=== PATIENT | female | born 1990 | race Caucasian/White ===

== ENCOUNTER → 2017-11-26 15:44 | Outpatient (CLI) | payer OTHER, SELFPAY ==
--- NOTE | 2017-11-26 15:00 | GANG_PTH ---
PATIENT: ALVIN PASTOR LOC: [facility] U#:[id number] AGE/SX: 34/F ROOM: RE11/26/[address]: Sebastián Rodriges MD : 1990 BED: DIS: SPEC #: [id number] RECD: 11/26/17 15:44 STATUS: JESSICA BRIAN #: [id number] DIANNE: 11/26/17 15:[address]: Sebastián Rodriges DEPT: SURGICAL PATHOLOGY RECD BY: Seng Gurrola ENTERED: 11/27/17 07:42 SP TYPE: GANGLION OTHR DR: Dr. Juan Diego Gonzalez MD [facility] Tissues: GANGLION CYST Procedures: Surgery Specimen Level III HEADER OPERATION: Right wrist removal ganglion cyst PRE-OP DIAGNOSIS: Large ganglion cyst right wrist TISSUE SUBMITTED: Dorsal ganglion cyst right wrist MICROSCOPIC DIAGNOSIS Dorsal ganglion cyst right wrist, biopsy: Consistent with ganglion cyst with reactive changes. SJ:mehnaz 11/28/17 MICROSCOPIC DESCRIPTION Slides are reviewed. GROSS DESCRIPTION Received is one container labeled with the patient's name and not further designated. The specimen consists of an irregular piece of house soft tissue measuring 2.5 x 1.5 x 1 cm. Also present in the container are multiple pieces of soft tissue measuring in aggregate 2 x 0.5 x 0.3 cm. The largest piece is serially sectioned. The entire specimen is submitted in two cassettes. / SJ:mehnaz 11/27/17 TC:5 [facility]: [id number]
== END ==
PROVIDERS: Family Provider Internal Medicine; PCP Internal Medicine; Visit Provider Orthopaedic Surgery
DX: M67.431 Ganglion, right wrist (principal)
CPT/HCPCS: 88304

== ENCOUNTER 2021-03-07 13:00 | Outpatient (RCR) | payer OTHER, SELFPAY | END 2021-03-08 23:59 | LOC: DC 13:00 | PROVIDERS: PCP Internal Medicine; Visit Provider Advanced Practice Midwife | DX: O24.410 Gestational diabetes mellitus in pregnancy, diet controlled (principal); Z3A.00 Weeks of gestation of pregnancy not specified | CPT/HCPCS: 97802; G0108 ==

== ENCOUNTER 2021-03-14 15:42 | Outpatient (RCR) | payer OTHER, SELFPAY | END 2021-04-08 23:59 | LOC: DC 15:42 | PROVIDERS: PCP Internal Medicine; Visit Provider Advanced Practice Midwife | DX: O24.410 Gestational diabetes mellitus in pregnancy, diet controlled (principal); Z3A.00 Weeks of gestation of pregnancy not specified ==

== ENCOUNTER 2021-05-21 05:08 | Inpatient (IN) | payer OTHER, SELFPAY ==
[2021-05-21] VITALS (22 sets, daily range): BP systolic 91–131; BP diastolic 46–90; PULSE 58–105; RESP 10–19; TEMP 36.2–36.9; O2SAT 95–99; BMI 33.5
--- NOTE | 2021-05-21 | FALS_PTH ---
PATIENT: ALVIN PASTOR LOC: WP U#:[id number] AGE/SX: 30/F ROOM: WP007 RE05/21/[address]: Dr. Shannen Zaidi, MDDOB: 1990 BED: 1 DIS: 05/23/2021 SPEC #: [id number] RECD: 05/21/21 12:42 STATUS: JESSICA BRIAN #: [id number] DIANNE: 05/21/21 00:[address]: Shannen Zaidi DEPT: SURGICAL PATHOLOGY RECD BY: Seng Gurrola ENTERED: 05/21/21 12:42 SP TYPE: FALL TUBES OTHR DR: Dr. Juan Diego Gonzalez MD Tissues: Fallopian tube Procedures: Surgery Specimen Level II HEADER OPERATION: Tubal ligation PRE-OP DIAGNOSIS: Sterilization TISSUE SUBMITTED: Fallopian tubes, right side with suture MICROSCOPIC DIAGNOSIS Right fallopian tube, salpingectomy: Complete cross-section of fallopian tube with no pathologic change. Left fallopian tube, salpingectomy: Complete cross-section of fallopian tube with no pathologic change. AM:mehnaz 05/22/2021 MICROSCOPIC DESCRIPTION Slides are reviewed. GROSS DESCRIPTION Received in fixative is one container labeled with the patient's name and designated bilateral fallopian tubes, right with suture. The specimen consists of two fallopian tubes with an average length of 6 cm and has an average diameter of 0.5 cm. Both fallopian tubes have normal fimbriated ends. No mass lesions are identified. Tile Designer sections are submitted in two cassettes as follows: 1 - right fallopian tube, 2 - left other fallopian tube. / AM:mehnaz 05/21/21 TC:4 CPT: 91233 x2
[2021-05-21] MEDS: Lactated Ringers 1,000 ML 999 ML IV (06:00)
[2021-05-21 06:13] LABS: Absolute Lymphocyte Count 3.87 X10^3/uL (0.83-4.51); Absolute Neutrophil Count 6.7 X10^3/uL (2.0-7.7); Basophil# 0.06 X10^3/uL; Basophil% 0.5 % (0-1); Eosinophil# 0.04 X10^3/uL; Eosinophils% 0.3 % (0-5); Hematocrit 32.1 % (37-47); Hemoglobin 10.5 g/dL (12.0-15.0); Lymphocyte # 3.87 X10^3/ul (0.83-4.51); Lymphocyte % 32.6 % (19-41); Mean Corp Hgb Conc 32.7 g/dL (32-36); Mean Corpuscular Hgb 26.4 pg (27.0-32.0); Mean Corpuscular Volume 80.7 fL (81-99); Monocyte# 1.12 X10^3/uL; Monocyte% 9.4 % (0-10); NRBC Flagged by Analyzer 0 % (0-5); Neutrophil # 6.73 X10^3/uL (2.7-7.7); Neutrophil % 56.8 % (47-70); Platelet Count 304 K/mm3 (150-450); RBC Distribution Width CV 13.4 % (11.6-14.6); RBC Distribution Width SD 39.2 fl (35.1-43.9); Red Blood Count 3.98 M/mm3 (4.2-5.4); White Blood Count 11.9 K/mm3 (4.4-11.0)
[2021-05-21] MEDS: Acetaminophen 500 MG Tablet 1000 MG PO ×3 (06:30→18:55)
[2021-05-21 06:36] LABS: Bedside Glucose 82 mg/dL (70-110)
[2021-05-21] MEDS: Lactated Ringers 1,000 ML 150 ML IV (06:55)
[2021-05-21] MEDS: Sodium Citrate/Citric Acid 30 ML UDC PO (06:58)
--- NOTE | 2021-05-21 07:13 | PCM.HP.BLA ---
History and Physical Date of Admission: 05/21/21 Pre-Op History and Physical ? HPI: The patient is a 30 year old female presenting for pre-operative visit. She is scheduled for and salpingectomy, for breech, 39 weeks, GDMA1 on 05/21/21. Procedure discussed along with risks, benefits and complications. Other alternatives discussed for management. Consent form signed? Yes. ? ? PAST MEDICAL HISTORY PAST MEDICAL HISTORY Diagnosis Date ? Gestational diabetes mellitus (GDM) in second trimester 02/25/2021 ? depression ? ? Pre-eclampsia ? ? ? PAST SURGICAL HISTORY PAST SURGICAL HISTORY Procedure Laterality Date ? CYST EXCISION Right 11/25/2017 ? gangling ? ? ? CURRENT MEDICATIONS Current Outpatient Medications Medication Sig Dispense Refill ? blood sugar diagnostic test strip 1 Strip four times daily. Use as instructed 120 Strip 9 ? Lancets lancets 1 Each four times daily. Use as instructed 120 Each 9 ? Urine Glucose-Ketones Test (KETO-DIASTIX) strp 1 Strip four times daily. 120 Strip 9 ? aspirin, enteric coated (ASPIRIN, ENTERIC COATED) 81 mg EC tablet Take 81 mg by mouth once daily. ? ? ? doxylamine succinate (UNISOM, DOXYLAMINE, ORAL) Take by mouth. ? ? ? PNV62/FA/OM3/DHA/EPA/FISH OIL ( GUMMY ORAL) Take by mouth as directed. ? ? ? No current facility-administered medications for this visit. ? ? ALLERGIES: Patient has no known allergies. ? PERSONAL HISTORY: SOCIAL HISTORY Social History ? Tobacco Use ? Smoking status: Never Smoker ? Smokeless tobacco: Never Used Vaping Use ? Vaping Use: Never used Substance Use Topics ? Alcohol use: No ? Drug use: No ? FAMILY HISTORY: FAMILY HISTORY FAMILY HISTORY Problem Relation Age of Onset ? No Known Problems Mother ? ? Ischemic Heart Disease Father ? ? 12/2010 ? No Known Problems Sister ? ? other (Other) Sister ? ? Autoimmune Hepavirus Disease ? Macular Degen Maternal Grandmother ? ? Cancer Maternal Grandfather ? ? melanoma, colon cancer ? Aneurysm Paternal Grandmother ? ? Diabetes Paternal Grandmother ? ? Ischemic Heart Disease Paternal Grandfather ? ? Cancer Paternal Grandfather ? ? Hypertension Paternal Grandfather ? ? No Known Problems Son ? ? ? REVIEW OF SYMPTOMS: negative except as noted above PHYSICAL EXAMINATION: ? VITALS: Blood pressure 130/76, weight 179 lb (81.2 kg), last menstrual period 08/13/2020, currently . ? GENERAL: The patient is well nourished, well hydrated in no acute distress. , The patient is oriented to time, place, and person. NECK: full range of motion Abdomen: gravid, non tender. FHR 140s. ? IMPRESSION: 39 weeks, Breech, GDMA1 , desires sterilization ? PLAN: C/S and Bilateral salpingectomy ? Pt has been counseled on risks/benefits and alternatives of surgery including but not limited to anesthesia, bleeding, infection, injury to pelvic structures including bowel, bladder, ureters and vessels. Pt wishes to proceed with surgery at this time. Pt understands salpingectomy is permanent. Cs pre and post op consent signed. ? ? I have reviewed and updated past medical and surgical history, medications and allergies Shannen Hendricks MD ?4:52 PM Routine Office Visit on 05/14/2021 Routine Office Visit on 05/14/2021 Note shared with patient
--- NOTE | 2021-05-21 08:02 | OP.PCM_ITS ---
Assessment & Plan (1) Delivery by section: Maternal Data Information Final NORA: 05/28/21 Gestational age: 39 Details Operative Information Date of Procedure: 05/21/21 Pre-Operative Diagnosis: breech, gdma1, 39 weeks gestation, desires sterilization Post-Operative Diagnosis: same, live female infant Indications for : Desires elective sterilization and Breech Classification: Scheduled Procedure Type: bilateral salpingectomy scow captain #1: Zachery Nielsen Type of Anesthesia: Spinal Antibiotic Given: Ancef 2 grams IV x1 Drain: Hannah to straight drain Estimated Blood Loss: 600 Fluids Replaced: 1000 Procedure Start Time: :39 Procedure Stop Time: 08:10 Time of Delivery: 07:42 Findings Description of Procedure: After informed consent was obtained the patient was ta cristal to the operating room she was given spinal anesthesia. sHe was placed in the supine position. She was then prepped and draped in normal sterile fashion. Once spinal anesthesia was found to be adequate skin incision was made with a scalpel in a Pfannenstiel fashion. It was carried down to the underlying layer of the fascia. Fascia was then incised midline with scapel and extended laterally using curved bell. 2 straight Silverwood's were placed in the superior aspect of the fascial edge and the rectus muscles were dissected off sharply. Attention was then turned to the inferior aspect where again the fascial edge was grasped with 2 straight Jose clamps tented up and the rectus muscle dissected off sharply. At this time the rectus muscles were grasped in the midline using 2 Allis clamps and scalpel was used to separate the rectus muscles. Using blunt force the peritoneum was then entered. At this time the vesicouterine peritoneum was identified. Uterine incision was made in a low transverse fashion with the scalpel and then entered bluntly. Gentle opposing traction was placed to extend the uterine incision. The membranes were ruptured amniotic fluid clear. Infant's buttocks was then brought to the uterine incision was delivered atraumatically followed by the rest 's body and head without complication. At this time delayed cord clamping was performed mouth nose were suctioned. was then handed to the waiting nursery team. The placenta was then removed with gentle traction. The uterus was removed from the intra-abdominal cavity is wrapped in a moist lap. It was cleared of all clots and debris using a moist lap. Ring clamps were placed on the uterine angles. #1 Vicryl suture was used in a running locked fashion for the first layer. Tubes and ovaries were evaluated they were normal. The right tube was grasped in an avascular area with the Samara and the LigaSure was used to seal and ligate along the mesosalpinx to remove the entire right fallopian tube. At this time the uterus was placed back in the intra-abdominal cavity. This was then repeated on the left side. The left tube was grasped in an avascular area LigaSure was used to coagulate and ligate along the mesosalpinx. The left tube was removed in its entirety. Gutters were cleared of all clots and debris. Shahla was placed on both pedicles. The uterine incision was again evaluated good hemostasis was appreciated. Shahla was placed on uterine incision. The peritoneum and muscle were grasped with Kellys and reapproximated using #2 Vicryl suture in a running fashion. Shahla placed over rectus. The fascia was then reapproximated using #1 Vicryl in a running fashion. Subcutaneous layer was evaluated and Bovie was used for any small oozing that was noted per #2-0 plain gut suture was then used to reapproximate the subcutaneous layer 4-0 Vicryl on a Gus needle was used to reapproximate the skin in a subcutaneous fashion. Dry sterile dressing was applied. Instrument lap needle count were correct ?2. Anticipated normal postoperative course Presentation: Positive for Manish Breech Amniotic Membrane Rupture Type: Artificial Amniotic Fluid Description: Clear Placental Delivery Description: Expressed Placenta Disposition: [facility] Specimen(s) Sent to Pathology: bilateral fallopian tubes Cord Vessel Description: 3 Vessels Cord Entanglement: None A Gender: Female (1 minute): 9 (5 minute): 9 Delayed Cord Clamping: Yes Complications Risks of Surgery Discussed w/Patient: Bleeding, Anesthesia Risks, Infection, Permanency, Failure Rate of 1 to 2%, Injury to surrounding structure(s) including bowel and bladder and Availability of other non-permanent control options Complications: none
[2021-05-21] MEDS: Oxytocin 30 units/NS 500 ml 30 UNITS/500 ML IV.SOLN 167 UNITS IV (08:20)
[2021-05-21 08:37] LABS: Pathology Specimen OB SEE PATHOLOGY REPORT
[2021-05-21] MEDS: Ketorolac 30 MG/ML Syringe IV ×3 (08:46→20:53)
[2021-05-21 09:55] LABS: Bedside Glucose 87 mg/dL (70-110)
[2021-05-21] MEDS: Lactated Ringers 1,000 ML 100 ML IV (11:24)
[2021-05-21] MEDS: Senna/Docusate Sodium 1 Tablet PO (12:27)
--- NOTE | 2021-05-21 21:15 | NURSING ---
This nurse helped pt to standing position - pt became nauseous, lightheaded, and stated she heard ringing in her ears - helped pt lay back down and she no longer felt symptoms - BP before getting up was 93/55, HR 105 - after getting up was 93/46, HR 65, small amount of bleeding, fundus firm and at umbilicus, pt's nielsen catheter emptied for 550 mLs of clear, pale urine.
[2021-05-22] VITALS (12 sets, daily range): BP systolic 81–116; BP diastolic 49–70; PULSE 72–110; RESP 16–18; TEMP 36.3–36.9; O2SAT 97–99
[2021-05-22] MEDS: Acetaminophen 500 MG Tablet 1000 MG PO ×4 (00:40→19:19)
--- NOTE | 2021-05-22 00:45 | NURSING ---
Pt up to bathroom for the first time - became nauseous and lightheaded on the way back from bathroom - dangling at side of bed BP was 81/55, HR 91 - after laying in bed for a couple minutes, symptoms gone and BP 97/56, HR 85. Will continue to monitor.
[2021-05-22] MEDS: Ketorolac 30 MG/ML Syringe IV (04:13)
[2021-05-22] MEDS: 0.9% Saline Lock 10 ML Syringe IV (04:13)
[2021-05-22 07:00] LABS: Bedside Glucose 81 mg/dL (70-110)
[2021-05-22 07:03] LABS: Hematocrit 27.5 % (37-47); Mean Corp Hgb Conc 32.7 g/dL (32-36); Mean Corpuscular Hgb 26.8 pg (27.0-32.0); Mean Corpuscular Volume 81.8 fL (81-99); Mean Platelet Vol. 10.3 fl (6.2-12.0); Platelet Count 197 K/mm3 (150-450); RBC Distribution Width CV 13.7 % (11.6-14.6); RBC Distribution Width SD 40.9 fl (35.1-43.9); Red Blood Count 3.36 M/mm3 (4.2-5.4); White Blood Count 10.9 K/mm3 (4.4-11.0)
--- NOTE | 2021-05-22 09:32 | NURSING ---
Report given to Marisol Soler RN, who will assume care of this patient at this time.
[2021-05-22] MEDS: Ibuprofen 600 MG Tablet PO ×3 (10:33→23:15)
[2021-05-22] MEDS: Senna/Docusate Sodium 1 Tablet PO (10:33)
--- NOTE | 2021-05-22 15:42 | PCM.PN.OB ---
Subjective Subjective Pain controlled but she is sore. Objective Data Objective Data Vital Signs: Vital Signs Temp Pulse Resp BP Pulse Ox 98.2 F 74 16 103/57 L 97 05/22/21 13:18 05/22/21 13:18 05/22/21 13:18 05/22/21 13:18 05/22/21 13:18 Oxygen Delivery Method Room Air Weight: 177 lb 6.4 oz Body Mass Index (BMI) 33.5 Intake & Output: Intake and Output for Last 24 Hours 05/20/21 05/21/21 05/22/21 23:59 23:59 23:59 Intake Total 2680 / 2680 Output Total 1850 / 1850 700 / 700 Balance 830 / 830 -700 / -700 Lab / Micro Data Result Diagrams: 05/22/21 06:52 Labs: Laboratory Results - last 24 hr 05/22/21 06:45: POC Glucose 81 05/22/21 06:52: WBC 10.9, RBC 3.36 L, Hgb 9.0 L, Hct 27.5 L, MCV 81.8, MCH 26.8 L, MCHC 32.7, RDW Std Deviation 40.9, RDW Coeff of Katharine 13.7, Plt Count 197, MPV 10.3 Physical Exam Const alert, oriented x3 and no apparent distress HEENT normocephalic GI soft to palpation, non-tender and non-distended GI Narrative: fundus firm, mid & below umbilicus Incision - bandage c/d/i Extremity normal to inspection and no calf tenderness Assessment & Plan (1) Delivery by section: COMMENT: POD#1 PLAN: Heme - HDS, anemia of ID - AF, no signs infection GI/ - no issues GDMA1 - FBS normal this am Routine care
[2021-05-23] MEDS: Acetaminophen 500 MG Tablet 1000 MG PO ×2 (00:53→06:16)
[2021-05-23 01:00] VITALS: BP 106/69; PULSE 88; RESP 16; TEMP 36.3; O2SAT 96
[2021-05-23] MEDS: Ibuprofen 600 MG Tablet PO (05:42)
[2021-05-23 07:52] VITALS: BP 111/71; PULSE 78; RESP 16; TEMP 36.8; O2SAT 98
--- NOTE | 2021-05-23 07:53 | PCM.PN.OB ---
Subjective Subjective Patient seen at bedside, doing well. Patient reports good pain control. Mild lochia. Breast-feeding without difficulty. Voiding without difficulty and passing flatus. Patient states no dizziness when ambulating. Would like to go home today. Objective Data Objective Data Vital Signs: Vital Signs Temp Pulse Resp BP Pulse Ox 97.3 F L 88 16 106/69 96 05/23/21 01:00 05/23/21 01:00 05/23/21 01:00 05/23/21 01:00 05/23/21 01:00 Oxygen Delivery Method Room Air Weight: 80.467 kg Body Mass Index (BMI) 33.5 Intake & Output: Intake and Output for Last 24 Hours 05/21/21 05/22/21 05/23/21 23:59 23:59 23:59 Intake Total 2680 / 2680 Output Total 1850 / 1850 700 / 700 Balance 830 / 830 -700 / -700 Lab / Micro Data Result Diagrams: 05/22/21 06:52 Physical Exam Narrative Dressing dry and intact. Fundus firm. Abdomen is soft and appropriately tender. Const alert and oriented x3 General Appearance: cooperative HEENT normocephalic Neck General: normal visual inspection GI soft to palpation and non-distended GI Narrative: Fundus firm Extremity normal to inspection and no calf tenderness Skin no rashes or lesions noted Neuro oriented x3 and CN's II-XII intact bilaterally Psych mental status grossly normal Assessment & Plan (1) Delivery by section: COMMENT: POD#1 PLAN: POD#2 , Doing well Routine care pain mgmt monitor VS ambulation dc home
--- NOTE | 2021-05-23 07:55 | PCM.DC ---
Discharge Instructions Diet Discharge Diet: No restrictions Activity May resume sexual activity in: 6-8 weeks Lifting Restrictions: 25 Dressing / Incision Call your doctor if your incision/area has: Continuous Slow Oozing, Sudden Increased Bleeding, Increased Pain/ Swelling, Increased Redness, Foul Smelling Discharge and Swelling at the incision site Call your doctor if you observe: Fever of 101 or Higher, Inability to urinate, Using more than 1 pad per hour and Uncontrolled pain Additional Dressing/Incision Instructions:: remove dressing at 7 days post op- if it becomes saturated prior to that time you may remove it. Let soap and water run over incision sites and dab dry. keep incision clean and dry. Follow Up Care Please Follow Up With: Shannen Zaidi MD When: 1-2 weeks post of incision check and again at 6 weeks post . [phone] Test Results: Test results from this visit will be discussed in further detail at your follow-up appointment, if applicable. Discharge Plan Admission Admit Date/Time: 05/21/21 05:08 Attending Provider: Shannen Zaidi Primary Care Provider: Juan Diego Gonzalez Discharge Orders/Prescriptions Prescriptions: New acetaminophen 500 mg Tablet 1,000 mg PO Q6H Qty: 0 RF: 0 ibuprofen 600 mg Tablet 600 mg PO Q6H Qty: 0 RF: 0 Continued Vitamin 1 EACH tablet 1 ea PO DAILY RF: 0 Discontinued pyridoxine (vitamin B6) [Vitamin B-6] 50 mg Tablet 50 mg PO DAILY RF: 0 Unisom (diphenhydramine) 50 mg/30 mL Liquid 50 mg PO QHS PRN (Reason: Sleep) RF: 0 Referrals / Follow Up: Juan Diego Gonzalez MD [Primary Care Provider] - Disposition Disposition (needs filled in before D/C Order can be placed): Home, Self Care
--- NOTE | 2021-05-23 07:57 | PCM.DC.BLA ---
Discharge Summary Date of Admission: 05/21/21 Date of Discharge: 05/23/21 Summary: Patient admitted to [facility] labor and delivery on 05/21/2021 for a scheduled section due to breech presentation at 39.1 weeks gestation. Patient underwent a low transverse section with a bilateral salpingectomy without complication. Patient was discharged home on postoperative day 2 in stable condition. Meaningful Use Info Meaningful Use Diagnoses (Choose all that apply): None applicable Discharge Plan Admission Admit Date/Time: 05/21/21 05:08 Attending Provider: Shannen Zaidi Primary Care Provider: Juan Diego Gonzalez Discharge Orders/Prescriptions Prescriptions: New acetaminophen 500 mg Tablet 1,000 mg PO Q6H Qty: 0 RF: 0 ibuprofen 600 mg Tablet 600 mg PO Q6H Qty: 0 RF: 0 Continued Vitamin 1 EACH tablet 1 ea PO DAILY RF: 0 Discontinued pyridoxine (vitamin B6) [Vitamin B-6] 50 mg Tablet 50 mg PO DAILY RF: 0 Unisom (diphenhydramine) 50 mg/30 mL Liquid 50 mg PO QHS PRN (Reason: Sleep) RF: 0 Referrals / Follow Up: Juan Diego Gonzalez MD [Primary Care Provider] - Disposition Disposition (needs filled in before D/C Order can be placed): Home, Self Care
[2021-05-23 11:00] VITALS: BP 114/78; PULSE 94; RESP 16; TEMP 36.5; O2SAT 98
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
[2021-05-23 12:09] VITALS: BP 114/78; PULSE 97; RESP 16; TEMP 36.3; O2SAT 98
== END 2021-05-23 12:40 | disposition home or self-care (01) | DRG 785 ==
PROVIDERS: Admitting Provider Obstetrics & Gynecology; PCP Internal Medicine; Visit Provider Obstetrics & Gynecology
PROC: 10D00Z1 Extraction of Products of Conception, Low, Open Approach (ICD-10-PCS; CPT 59514; principal; 2021-05-21 07:15)
DX: O24.429 Gestational diabetes mellitus in childbirth, unspecified control (principal); O32.1XX0 Maternal care for breech presentation, not applicable or unspecified; Z3A.39 39 weeks gestation of pregnancy; Z37.0 Single live birth; Z30.2 Encounter for sterilization; Z79.82 Long term (current) use of aspirin; Z80.0 Family history of malignant neoplasm of digestive organs; Z80.8 Family history of malignant neoplasm of other organs or systems; Z82.49 Family history of ischemic heart disease and other diseases of the circulatory system; Z83.3 Family history of diabetes mellitus; O99.013 Anemia complicating pregnancy, third trimester; D64.9 Anemia, unspecified
CPT/HCPCS: 82962; 85025; 85027; 86850; 86900; 86901; 88302; 99218; 99251; J7120; A4216; G0378; G0463; J2405